=== PATIENT | female | born 2000 | race Caucasian/White ===

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

== ENCOUNTER 2020-10-29 20:57 | Emergency (ER) | payer OTHER, SELFPAY ==
[2019-07-26 13:03] VITALS: BMI 27.8
[2020-10-29 20:58] VITALS: BP 120/69; PULSE 106; RESP 18; TEMP 36.4; O2SAT 96; BMI 30.2
--- NOTE | 2020-10-29 21:31 | US_ITS ---
STUDY: VENOUS DOPPLER ULTRASOUND - LEFT LOWER EXTREMITY REASON FOR EXAM: Female, 20 years old. LT CALF PAIN- TECHNIQUE: Ultrasound evaluation of the deep vein system to include olmos-scale imaging and compression was performed. Olmos-scale imaging and Doppler sonographic evaluation, including duplex spectral analysis and qualitative color flow sonography, was performed. COMPARISON: None. FINDINGS: Common Femoral Vein: Normal compression, spontaneity and augmentation. Normal color Doppler. Common Femoral Vein/Greater Saphenous Junction: Normal compression, spontaneity and augmentation. Normal color Doppler. Femoral Proximal: Normal compression, spontaneity and augmentation. Normal color Doppler. Femoral Middle: Normal compression, spontaneity and augmentation. Normal color Doppler. Femoral Distal: Normal compression, spontaneity and augmentation. Normal color Doppler. Popliteal Vein: Normal compression, spontaneity and augmentation. Normal color Doppler. Posterior Tibial Vein: Normal compression, spontaneity and augmentation. Normal color Doppler. Peroneal Vein: Normal compression, spontaneity and augmentation. Normal color Doppler. The popliteal fossa was evaluated where a tiny Whittaker''s cyst is present. The right common femoral vein was evaluated and is normal. US/Venous Duplex Imag/Limited/Uni IMPRESSION: 1. Normal venous Doppler ultrasound of the left lower extremity. 2. Tiny Whittaker''s cyst cyst of the popliteal fossa. Electronically Signed: Jairo Wong MD at 22:33 EDT , Service support ,
--- NOTE | 2020-10-29 21:55 | EDS_ITS ---
HPI History of Present Illness Chief Complaint: Lower Extremity Injury Narrative Narrative: 20-year-old G1, P0 at 29 weeks presents with concern for left lower extremity pain and swelling. States that she took a flight from [place] 3 days ago. States that the pain is worse with movement. Denies any chest pain or shortness of breath. No history of DVT or pulmonary embolism. [facility] Medical History (Updated 10/29/20 @ 23:[address] Srikanth Chau DO) Anxiety and depression Home Medications [id number] [] 1 tab PO DAILY 10/29/20 [History Last Taken Unknown] Allergy/AdvReac Type Severity Reaction Status Date / Time No Known Allergies Allergy Verified 10/29/20 21:00 Social History Smoking Status: Never smoker alcohol intake: never substance use type: does not use caffeine: Yes what type of physical activity do you participate in: running and weight training frequency: 1-2 times per week seatbelt use: always do you feel safe at home: Yes additional social history: Senior at [employer] ROS ROS ED Constitutional Constitutional ED: Denies chills, fever(s) or sweats Eyes Eyes: Denies blurry vision, change in vision or diplopia ENT ENT ED: Denies rhinorrhea or sore throat Cardiovascular Cardiovascular: Denies chest pain, orthopnea, palpitations or racing heartbeat Respiratory/Chest Respiratory/Chest: Denies cough, dyspnea, dyspnea on exertion, orthopnea or sputum Gastrointestinal Gastrointestinal: Denies abdominal pain, constipation, diarrhea, melena, nausea or vomiting Genitourinary Genitourinary ED: Denies dysuria, hematuria or urinary frequency Musculoskeletal Musculoskeletal: Reports myalgias; Denies arthralgias or neck pain Integumentary Denies rash Neurologic Neurologic: Denies headache(s), paresthesias or weakness Psychiatric Psychiatric: Denies anxiety or depression Hematologic/Lymphatic Hematologic/Lymphatic: Denies easy bleeding or easy bruising Allergic/Immunologic Allergic/Immunologic ED: Denies mouth swelling or tongue swelling EXAM Physical Exam Const Vital Signs: 10/29/20 20:58 Temperature 97.6 F L Temperature Source Temporal Pulse Rate 106 H Respiratory Rate 18 Blood Pressure 120/69 Blood Pressure Mean 86 Pulse Ox 96 Oxygen Delivery Method Room Air Positive well nourished and well developed General Appearance ED: well developed HEENT Reports TM's clear and moist mucous membranes normocephalic and atraumatic Tympanic Membrane ED: Yes TM's clear Eyes PERRL and EOMs intact bilaterally Neck no lymphadenopathy, supple and no JVD Chest Wall inspection of chest normal Resp normal respiratory effort and clear to auscultation bilaterally Cardio regular rate, S1 normal heart sound, S2 normal heart sound and no murmurs Peripheral Pulses: pulses 2+ throughout GI soft to palpation, non-tender and non-distended GI Narrative: Gravid abdomen. Back/Spine no CVA tenderness and no thoracic nor lumbar tenderness Extremity normal to inspection General Extremety ED: Negative for edema or tenderness General Extremity: Negative for edema Neuro oriented x3, CN's II-XII intact bilaterally and no sensory deficits noted Sensorium / Orientation: alert Motor Exam: strength 5/5 throughout Psych mental status grossly normal Skin no rashes or lesions noted MDM MDM MDM Narrative Medical decision making narrative: Patient appears well nontoxic. Ultrasound shows no evidence of left lower extremity DVT. Whittaker's cyst present. Patient advised on Tylenol, Jaun wrap, elevation, rest. Advised to return for new or worsening symptoms. Patient agreeable and discharged home in stable condition. Radiography Diagnostic Testing: Radiology Impression Venous Duplex 10/29/20 21:31 IMPRESSION: 1. Normal venous Doppler ultrasound of the left lower extremity. 2. Tiny Whittaker''s cyst cyst of the popliteal fossa. Electronically Signed: Jairo Wong MD at 22:33 EDT , Service support , Discharge Plan Triage Chief Complaint: Lower Extremity Injury ED Provider: Srikanth Chau Dx/Rx/DC Orders Clinical Impression: Whittaker cyst Instructions: ED Whittaker's Cyst Prescriptions: No Action 1 mg Tablet 1 tab PO DAILY RF: 0 Primary Care Provider: Abe Dang Referrals: Abe Dang MD [Primary Care Provider] - Disposition Disposition: Home, Self Care
== END 2020-10-29 23:42 | disposition home or self-care (01) ==
PROVIDERS: Emergency Provider Emergency Medicine; PCP Pediatrics
DX: O26.893 Other specified pregnancy related conditions, third trimester (principal); M71.22 Synovial cyst of popliteal space [Baker], left knee; Z3A.29 29 weeks gestation of pregnancy
CPT/HCPCS: 93971; 99282

== ENCOUNTER → 2021-12-15 | Outpatient (CLI) | payer OTHER, SELFPAY | END | disposition home or self-care (01) | PROVIDERS: PCP Pediatrics; Referring Provider Physician Assistant Surgical; Visit Provider Physician Assistant Surgical | DX: R35.0 Frequency of micturition (principal) | CPT/HCPCS: 87086; 87088; 87186 ==

== ENCOUNTER → 2022-02-04 | Outpatient (CLI) | payer OTHER, SELFPAY ==
[2022-02-04 12:41] LABS: Bacteria 0 SEEN /hpf (None Seen); Mucous, Urine 0 SEEN /hpf (<or=2+); Red Blood Cells-Urine 0 SEEN /hpf (0-5)
[2022-02-04 12:46] LABS: Color, Urine Red (Yellow); Glucose, Dipstick Normal (Normal); Ketone-Dipstick Negative (Negative); Leukocyte Esterase-Dipstick Negative /ul (Negative); Nitrite-Dipstick Positive (Negative); Occult Blood-Urine 10 /ul (Negative); Protein-Dipstick 30 mg/dl (Negative); Urine Clarity Sl. Cloudy (Clear); Urine Urobilinogen 12 mg/dl (Normal)
[2022-02-04 12:54] LABS: Squamous Epithelial Cells - UA 5-10 SEEN /hpf (5-10); White Blood Cells 0-5 SEEN /hpf (0-5)
[2022-02-04 12:55] LABS: Urine Bilirubin Dipstick 6 mg/dL (Negative)
== END | disposition home or self-care (01) ==
LOC: LABSPEC 12:31
PROVIDERS: PCP Pediatrics; Visit Provider Physician Assistant
DX: R35.0 Frequency of micturition (principal)
CPT/HCPCS: 81001; 87086; 87088

== ENCOUNTER → 2022-06-17 | Outpatient (CLI) | payer OTHER, SELFPAY ==
[2022-06-19 21:07] LABS: Chlamydia By Nucleic Acid AMP Negative (Negative)
[2022-06-19 22:45] LABS: Gonococcus By Nucleic Acid AMP Negative (Negative)
[2022-06-26 19:14] LABS: HPV Reflexed? NOT INDICATED
== END | disposition home or self-care (01) ==
LOC: LABSPEC 14:21
PROVIDERS: PCP Pediatrics; Referring Provider Obstetrics & Gynecology; Visit Provider Obstetrics & Gynecology
DX: Z34.90 Encounter for supervision of normal pregnancy, unspecified, unspecified trimester (principal)
CPT/HCPCS: 87086; 87491; 87591; 88175; G0145

== ENCOUNTER → 2022-07-17 | Outpatient (CLI) | payer OTHER, SELFPAY | END | disposition home or self-care (01) | LOC: MTLAB 10:04 | PROVIDERS: PCP Pediatrics; Referring Provider Obstetrics & Gynecology; Visit Provider Obstetrics & Gynecology | DX: Z34.81 Encounter for supervision of other normal pregnancy, first trimester (principal) | CPT/HCPCS: 36415 ==